=== PATIENT | female | born 1945 | race American Indian/Alaskan Native ===

== ENCOUNTER 2018-06-21 11:23 | Day surgery (SDC) | payer MEDICARE ==
[2018-06-21] MEDS ORDERED: MYDRIACYL OS ONE (11:30)
[2018-06-21] MEDS ORDERED: IOPIDINE OS ONE (11:30)
[2018-06-21] MEDS ORDERED: NEOFRIN OS ONE (11:30)
[2018-06-21 13:46] VITALS: BP 155/50
[2018-06-21] MEDS ORDERED: IOPIDINE ONE (14:11)
[2018-06-21] MEDS ORDERED: MYDRIACYL ONE (14:11)
[2018-06-21] MEDS ORDERED: NEOFRIN ONE (14:11)
== END 2018-06-21 11:24 | disposition home or self-care (01) ==
LOC: OR 11:23 → EDSEX 14:00
PROVIDERS: ATTEND Specialist
DX: H26.492 Other secondary cataract, left eye (principal); E11.36 Type 2 diabetes mellitus with diabetic cataract; I13.2 Hypertensive heart and chronic kidney disease with heart failure and with stage 5 chronic kidney disease, or end stage renal disease; E11.22 Type 2 diabetes mellitus with diabetic chronic kidney disease; N18.6 End stage renal disease; I50.9 Heart failure, unspecified; I25.2 Old myocardial infarction; E78.00 Pure hypercholesterolemia, unspecified; J45.909 Unspecified asthma, uncomplicated; Z99.2 Dependence on renal dialysis; Z79.899 Other long term (current) drug therapy; Z88.5 Allergy status to narcotic agent; Z79.82 Long term (current) use of aspirin; Z79.4 Long term (current) use of insulin; Z98.41 Cataract extraction status, right eye; Z95.5 Presence of coronary angioplasty implant and graft; Z90.710 Acquired absence of both cervix and uterus; Z98.42 Cataract extraction status, left eye; Z98.890 Other specified postprocedural states; Z86.2 Personal history of diseases of the blood and blood-forming organs and certain disorders involving the immune mechanism
CPT/HCPCS: 82962